=== PATIENT | male | born 1955 | race Caucasian/White ===

== ENCOUNTER 2017-11-28 06:48 | Emergency (ER) | payer BC, SELFPAY ==
[2017-11-28 06:54] VITALS: O2SAT 64
[2017-11-28 06:59] VITALS: PULSE 140; RESP 32
[2017-11-28 07:00] VITALS: PULSE 150; RESP 19
[2017-11-28] MEDS: Sodium Bicarbonate 50 MEQ/50 ML SYR IVP (07:02)
[2017-11-28 07:04] VITALS: BP 85/11; PULSE 122; RESP 11
[2017-11-28] MEDS: Calcium Chloride 1000 MG/10 ML SYR IVP (07:04)
[2017-11-28 07:11] VITALS: RESP 1
--- NOTE | 2017-11-28 07:32 | ED.GENADUL_ITS ---
Disposition Clinical Impression: Cardiac arrest, CAD (coronary artery disease), Ventricular fibrillation, Asystole Disposition: Medical Decision Making - Medical Decision Making Is a 62-year-old male with a past medical history of hypertension, cardiac disease, positive stress test in the past, hypothyroidism, obesity, who presents for cardiac arrest. The patient was noted to be found unresponsive on the [facility] bus earlier this morning. Downtime was expected to be 5 minutes. When fire arrived, CPR was started, upon EMS arrival the patient was intubated. The cardiac arrest algorithm was performed on the patient for 30 minutes prior to arrival. He was initially noted to be in V. fib cardiac arrest, in multiple shocks are subsequently given. 7 regular shocks and 4 double shots. Over 4 rounds of epinephrine were given, 2 doses of amiodarone at 300 and 150 mg were given, all prior to arrival. Patient was intubated with a 7.500 mm endotracheal tube. On initial EMS arrival the patient's CO2 was noted to be in the 50s, however through prolonged resuscitation efforts a CO2 gradually dropped. Upon arrival to the emergency department pulse check was noted and the patient was in asystole, with no pulses, and and end-tidal CO2 of 12-19. Multiple rounds of CPR were performed, the patient was given 2 rounds of epinephrine, calcium gluconate, bicarb, and started on an amiodarone drip at 1 mg/min. in spite of continued resuscitative efforts, after roughly 40 total minutes of resuscitation since the initial onset, patient continued to be in asystole. Bedside ultrasound was performed over the heart which demonstrated no evidence of pericardial effusion, no cardiac contractility, no cardiac movement. Lung sliding was present bilaterally with no signs of tension pneumothorax. With no improvement with multiple rounds of medical and resuscitative management, the patient's was called at 7:11 AM. The patient's was contacted, and the case was discussed with her. The patient' s son was contacted and I personally spoke with him and discussed the case with his father's . I did discuss the case with the dietitian assistant medical payment poster , Wm Méndez and based on the patient past medical history, there is no indication for autopsy at this time. History of Present Illness - General Chief complaint: Code[employer] Stated complaint: CALEX Time Seen by Provider: 11/28/17 06:56 - History of Present Illness Initial comments: Is a 62-year-old male with a past medical history of hypertension, cardiac disease, positive stress test in the past, hypothyroidism, obesity, who presents for cardiac arrest. The patient was noted to be found unresponsive on the [facility] bus earlier this morning. Downtime was expected to be 5 minutes. When fire arrived, CPR was started, upon EMS arrival the patient was intubated. The cardiac arrest algorithm was performed on the patient for 30 minutes prior to arrival. He was initially noted to be in V. fib cardiac arrest, in multiple shocks are subsequently given. 7 regular shocks and 4 double shots. Over 4 rounds of epinephrine were given, 2 doses of amiodarone at 300 and 150 mg were given, all prior to arrival. Patient was intubated with a 7.500 mm endotracheal tube. On initial EMS arrival the patient's CO2 was noted to be in the 50s, however through prolonged resuscitation efforts a CO2 gradually dropped. Upon arrival to the emergency department pulse check was noted and the patient was in asystole, with no pulses, and and end-tidal CO2 of 12-19. No other modifying factors at this time. - Related Data Aspirin 81 mg PO DAILY tab-cap 05/15/13 Diltiazem HCl [Dilt-Xr] 120 mg PO DAILY #30 tab-cap 06/16/16 Hydrochlorothiazide [Hydrodiuril] 25 mg PO DAILY #90 tab-cap 02/08/17 Levothyroxine [Levothroid] 75 mcg PO DAILY #90 tab-cap 02/08/17 Lisinopril [Prinivil] 20 mg PO DAILY #90 tab-cap 03/15/17 Atorvastatin Calcium 20 mg PO DAILY #90 tab-cap 06/04/17 Sildenafil [Viagra] 50 mg PO PRN #10 06/11/17 Allergies Allergy/AdvReac Type Severity Reaction Status Date / Time Penicillins Allergy Unknown Unverified 11/08/17 13:17 Review of Systems Limitations: ROS unobtainable due to patients medical condition General Exam - Other Other exam information: ?GEN: unresponsive, in extremis SKIN: pale, cool NECK: no signs of trauma HENT: normocephalic atraumatic, pupils are 8 mm, dilated bilaterally, fixed and unresponsive CV: Asystole, no pulses, CPR in progress RESP: no spontaneous respirations, intubated ABD: soft MSK: no spontaneous movements, no obvious deformity BACK: no obvious trauma NEURO: unresponsive, absent pupillary reflex, corneal reflex, gag, and no spontaneous movements PSYCH: unresponsive Course Vital Signs - 24 hr 11/28/17 11/28/17 11/28/17 06:54 06:59 07:00 Pulse Respiratory 32 H 19 Rate Blood Pressure Pulse Oximetry 64 L 11/28/17 07:04 Pulse 122 H Respiratory 11 L Rate Blood Pressure 85/11 Pulse Oximetry
--- NOTE | 2017-11-28 08:12 | NUR.NOTE ---
Nursing Note: Removed ET Tube as patient will not be examined by ET Tube. Patient's in room with MD and family being called in. Software Integrator with .
--- NOTE | 2017-11-28 10:15 | NUR.NOTE ---
Nursing Note: Spoke with Pierre from the [facility]. Asked if it would be appropriate to send the patient to [facility]. He stated it would be alright, but we needed to be sure that the home is aware that they need to wait for the [facility] to call them before doing anything with the body. The nursing carding supervisor, Toña Garza is aware and she stated I could call [facility] and have them come and cotton picker the patient. I have written on colored paper a note for the home to wait until hearing from the [facility] before proceeding.I called [facility], spoke with Socorro and she will send someone up and she is aware of the need to wait. Dori Garza.
== END 2017-11-28 07:11 | disposition expired ==
PROVIDERS: Emergency Provider Student in an Organized Health Care Education/Training Program; PCP Nurse Practitioner Family
DX: I46.2 Cardiac arrest due to underlying cardiac condition (principal); I49.01 Ventricular fibrillation; I25.10 Atherosclerotic heart disease of native coronary artery without angina pectoris; I10 Essential (primary) hypertension
CPT/HCPCS: 92950; 96374; 96375; 99284; J3490